=== PATIENT | female | born 1985 | race Caucasian/White ===

== ENCOUNTER → 2021-12-14 15:57 | Outpatient (CLI) | payer BC, SELFPAY ==
--- NOTE | ~2021-12-14 | US_ITS ---
EXAMINATION: US thyroid DATE: 12/14/2021 16:11 INDICATION: Lump in throat. TECHNIQUE: Multiple ultrasound images of the thyroid were obtained. COMPARISON: None. FINDINGS: The right thyroid lobe measures 3.9 x 1.2 x 1.2 cm. The left thyroid lobe measures 3.0 x 1.3 x 1.4 c m. In the right thyroid lobe, there is a 4 mm nodule. IMPRESSION: 1. Small thyroid nodule, likely not clinically significant. No follow-up is needed. Reviewed, dictated and finalized at location A. IMPRESSION: 1. Small thyroid nodule, likely not clinically significant. No follow-up is nee ded.
== END ==
PROVIDERS: PCP Nurse Practitioner Adult Health; Visit Provider Nurse Practitioner Adult Health
DX: F45.8 Other somatoform disorders (principal); E04.1 Nontoxic single thyroid nodule
CPT/HCPCS: 76536

== ENCOUNTER 2025-05-27 08:33 | Outpatient (CLI) | payer OTHER, SELFPAY ==
--- NOTE | ~2025-05-27 | US_ITS ---
EXAMINATION: US pelvic complete w TV, 05/27/2025 8:37 CDT HISTORY: Z87.42 - Personal history of other diseases of the female... Comparison: None Technique: Manning-scale and color Doppler images were obtained. Findings: Uterus: Uterus anteverted 10.5 x 5.2 x 7.9 cm, there are intramural fibroids noted the largest posterior uterine body 5 x 4.4 x 5.2 cm. . Endometrium 2 cm with a heterogeneous appearance, no areas of increased flow. Right Ovary:Right ovary 4.4 x 2.6 x 3.5 cm, no adnexal mass, normal flow. Left Ovary: Left ovary 6 x 5.8 x 6.1 cm, normal flow, complex cystic lesion 5.3 x 5 cm. Free Fluid: None Impression: 1. Complex cystic right ovarian lesion with suggestion of solid feces incompletely evaluated. Contrast-enhanced MRI is recommended. 2. Thickened endometrium with nonspecific heterogeneity. Follow-up should BE obtained to assess resolution Reviewed, dictated and finalized at location P. Impression: 1. Complex cystic right ovarian lesion with suggestion of solid feces incomplet nikki evaluated. Contrast-enhanced MRI is recommended. 2. Thickened endometrium with nonspecific heterogeneity. Follow-up should BE ob tained to assess resolution
== END 2025-05-27 08:34 | disposition home or self-care (01) ==
LOC: MICIMG 08:34
PROVIDERS: PCP Nurse Practitioner Family; Visit Provider Nurse Practitioner Family
DX: R93.89 Abnormal findings on diagnostic imaging of other specified body structures (principal); N83.292 Other ovarian cyst, left side; Z87.42 Personal history of other diseases of the female genital tract
CPT/HCPCS: 76830; 76856

== ENCOUNTER 2025-06-24 06:34 | Outpatient (CLI) | payer OTHER, SELFPAY ==
--- OUTSIDE RECORDS SUMMARY | 2000-11-08 08:45 | XMS_ITS | Continuity of Care Document ---
Author Organization 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 No Information Mar-2 2-200 1 Goodwin OD Marvin. [address] , [address], [place], [address], [place]. tel:[phone] Family History Family Member Type Diagnosis Age At Onset No Information Payers Payer name Insurance type Covered constitution party ID Authoriza tion(s) No Information Social History Type Description Quantity Date Captured Comments Sex Female Smoking Status No Information Chief Complaint And Reason For Visit No Information Reason For Referral Reason For Referral No Information History Of Present Illness Encounter Date Complaint History Of Prese nt Illness No Information Functional Status Date Functional Assessmen t No Information Instructions Date Instruction Additional Infor mation No Information Assessments Type Assessment Date No Information Patient Care Teams Name Effective Dates (start - stop) Status Members No Information
--- NOTE | ~2025-06-24 | MR_ITS ---
EXAMINATION: MR pelvis wo/w con DATE: 06/24/2025 07:35 INDICATION: Other ovarian cyst, left side. TECHNIQUE: Magnetic resonance imaging (MRI) of the pelvis was performed without and with 20 mL MultiHance intravenous contrast. COMPARISON: Pelvis ultrasound 05/27/2025 FINDINGS: There are approximately 6 uterine fibroids measuring up to 4.7 cm. The endometrial complex is normal and measures 11 mm. The right ovary is normal. There is a 6.1 x 4.8 cm left ovarian mass that demonstrates increased T1- weighted signal intensity, consistent with blood products. There is no solid enhancing component. There is no ascites. There are no pathologically enlarged lymph nodes. IMPRESSION: 1. 6.1 cm hemorrhagic cyst versus endometrioma in left ovary. 2. Uterine fibroids. Reviewed, dictated and finalized at location E. 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
--- OUTSIDE RECORDS SUMMARY | 2025-06-24 06:37 | XMS_ITS | Clinical Summary ---
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 Role Phone Unavailable Primary Care Provider Unavailabl e Social History Tobacco Use Types Packs/Day Years Used Date Smoking Tobacco: Never Assessed Comments Unknown Sex and Gender Information Value Date Recorded Sex Assigned at Not on file Legal Sex Female 7:38 PM CDT Gender Identity Not on file Sexual Orientation Not on file Last Filed Vital Signs Vital Sign Reading Time Taken Comments Blood Pressure 113/72 05/16/2017 3:18 PM CDT Pulse 62 05/16/2017 3:18 PM CDT Temperature - - Respiratory Rate - - Oxygen Saturation - - Inhaled Oxygen Concentration - - Weight 92.6 kg (204 lb 4 oz) 05/16/2017 3:18 PM CDT Height 162.6 cm (5' 4) 05/16/2017 3:18 PM CDT Body Mass Index 35.06 05/16/2017 3:18 PM CDT Plan of Treatment Health Maintenance Due Date Last Done Comments Cervical Cancer Screening Pa p Smear (Age 30 to 64) Every 3 Years 1985 Annual Physical 1988 Hepatitis C 2003 DTaP, Tdap and Td Vaccines ( 1 - Tdap) 2004 Hepatitis B Vaccines (1 of 3 - 19+ 3-dose series) 2004 HPV Vaccines (1 - 3-dose SCD M series) 2012 Cervical Cancer Screening Pa p with HPV Testing (Age 30 to 64) Every 5 Years 2015 Cervical Cancer Screening with HPV 2015 COVID-19 Vaccine (2024-2 6 season) 2025 Influenza Adult (#1) 2025 Hepatitis A Vaccines Aged Out No long er eligible based on patient's age to complete this topic Meningococcal B Vaccine Aged Out No l onger eligible based on patient's age to complete this topic Meningococcal Vaccine Aged Out No brook live eligible based on patient's age to complete this topic Pneumococcal Vaccine: Pediat rics (0 to 5 Years) and At-Risk Patients (6 to 49 Years) Aged Out No longer eligible b ased on patient's age to complete this topic RSV Immunizations Under 20 Months Aged Out No longer eligible based on patient's age to complete this topic
== END 2025-06-24 06:35 | disposition home or self-care (01) ==
PROVIDERS: PCP Nurse Practitioner Family; Visit Provider Nurse Practitioner Obstetrics & Gynecology
DX: N83.292 Other ovarian cyst, left side (principal); D25.9 Leiomyoma of uterus, unspecified
CPT/HCPCS: 72197; A9577